=== PATIENT | female | born 1945 | race Caucasian/White ===

== ENCOUNTER → 2018-06-09 | Outpatient (CLI) | payer MEDICARE ==
--- NOTE | 2018-06-09 14:00 | EST ---
EXERCISE STRESS AGE: 72 SEX: F HT: 5'2" WT: 170 PROTOCOL: Francisco Stress Test STAGE: I DURATION OF EXERCISE: 4:30 HEART RATE REST: 64 BLOOD PRESSURE REST: 146/83 MAXIMUM HEART RATE ACHIEVED: 127 MAXIMUM BLOOD PRESSURE: 196/92 85% MPHR: 125 100% MPHR: 147 METS: 6.4 INDICATIONS: Abnormal EKG. CLINICAL INFORMATION: Baseline rhythm is sinus mechanism, rate 64, normal axis and intervals, poor R-wave progression, cannot exclude an anteroseptal myocardial infarction. Baseline blood pressure 146/83 mmHg. Patient exercised on Francisco protocol for 4 minute 30 seconds reaching a peak rate of 127 beats per minute which is equal to 86% maximum predicted heart rate. Blood pressure 196/92 mmHg. Test was terminated due to fatigue. There was no chest pain. Electrocardiographic monitoring revealed a normal cardiac response to exercise with no evidence for ischemic ST deviation. CONCLUSION: 1. Poor exercise tolerance. 2. Normal electrocardiographic response to exercise with no evidence for exercise- induced ischemia. MMODL / IJN: [id number] /
== END | disposition home or self-care (01) ==
LOC: RADNMMAIN 11:05
PROVIDERS: ATTEND Internal Medicine
DX: R07.9 Chest pain, unspecified (principal); E11.9 Type 2 diabetes mellitus without complications; E78.4 Other hyperlipidemia; R94.31 Abnormal electrocardiogram [ECG] [EKG]; I10 Essential (primary) hypertension; R06.02 Shortness of breath
CPT/HCPCS: 93017

== ENCOUNTER → 2018-06-26 | Outpatient (CLI) | payer MEDICARE ==
--- NOTE | 2018-06-27 11:31 | ECHOF ---
Referral Reason:R94.31 abnormal EKG, R06.02 Shortness of Breath MEASUREMENTS -------- HEIGHT: 157.5 cm WEIGHT: 78.5 kg BP: 121/64 RVIDd: 2.7 cm (< 3.3) IVSd: 1.0 cm (0.6 - 1.1) LVIDd: 3.9 cm (3.9 - 5.3) LVPWd: 1.0 cm (0.6 - 1.1) IVSs: 1.5 cm LVIDs: 2.8 cm LVPWs: 1.2 cm LA Diam: 3.2 cm (2.7 - 3.8) LAESV Index (A-L): 20.98 ml/m Ao Diam: 3.0 cm (2.0 - 3.7) AV Cusp: 2.2 cm (1.5 - 2.6) MV EXCURSION: 18.894 mm (> 18.000) MV EF SLOPE: 65 mm/s (70 - 150) EPSS: 0.6 cm MV E Ihsan: 0.99 m/s MV DecT: 207 ms MV A Ihsan: 1.06 m/s MV E/A Ratio: 0.93 RAP: 5.00 mmHg RVSP: 32.84 mmHg FINDINGS -------- Sinus rhythm. This was a technically good study. The left ventricular size is normal. Left ventricular wall thickness is normal. Overall left vent ricular systolic function is normal with, an EF between 55 - 60 %. The right ventricle is normal in size. Normal LA size by volume 22+/-6 ml/m2. The right atrium is normal in size. The aortic valve is trileaflet and appears structurally normal. The mitral valve is normal. Mild tricuspid regurgitation present. Right ventricular systolic pressure is normal at < 35 mmHg. Trace/mild (physiologic) pulmonic regurgitation. The aortic root size is normal. Normal inferior vena cava with normal inspiratory collapse consistent with estimated right atrial pre ssure of 5 mmHg. There is no pericardial effusion. CONCLUSIONS -------- 1. Sinus rhythm. 2. This was a technically good study. 3. The left ventricular size is normal. 4. Left ventricular wall thickness is normal. 5. Overall left ventricular systolic function is normal with, an EF between 55 - 60 %. 6. The right ventricle is normal in size. 7. Normal LA size by volume 22+/-6 ml/m2. 8. The right atrium is normal in size. 9. The aortic valve is trileaflet and appears structurally normal. 10. The mitral valve is normal. 11. Mild tricuspid regurgitation present. 12. Right ventricular systolic pressure is normal at < 35 mmHg. 13. Trace/mild (physiologic) pulmonic regurgitation. 14. The aortic root size is normal. 15. Normal inferior vena cava with normal inspiratory collapse consistent with estimated right atrial pressure of 5 mmHg. 16. There is no pericardial effusion. HISTOLOGIC AIDE: Anabel Cruz RDCS
== END ==
LOC: RADECHMAIN 16:23
PROVIDERS: ATTEND Internal Medicine
DX: I07.1 Rheumatic tricuspid insufficiency (principal); I37.1 Nonrheumatic pulmonary valve insufficiency
CPT/HCPCS: 93306